=== PATIENT | female | born 1970 | race Caucasian/White ===

== ENCOUNTER 2024-05-06 07:52 | Day surgery (SDC) | payer OTHER ==
[~2024-05-06] VITALS: Ht 167.6 cm; Wt 122.2 kg
[~2024-05-06 07:52] MED LIST: SEMA1PEN3
[2024-05-06] MEDS: SODIUM CHLORIDE 0.9% 1,000 ML IV ONE (08:29)
[2024-05-06] MEDS ORDERED: OXYGEN THERAPY IH SCH (10:00)
[2024-05-06] MEDS ORDERED: PROPOFOL 1% 20 ML VIAL IVP ONE (12:00)
[2024-05-06] MEDS ORDERED: LIDOCAINE/PF 2% 5 ML VIAL IM ONE (12:00)
== END 2024-05-06 11:30 | disposition home or self-care (01) ==
LOC: SURGERY 07:52
PROVIDERS: ATTEND Specialist
DX: Z12.11 Encounter for screening for malignant neoplasm of colon (principal); K64.0 First degree hemorrhoids; E66.9 Obesity, unspecified; G47.33 Obstructive sleep apnea (adult) (pediatric); E11.9 Type 2 diabetes mellitus without complications; Z79.899 Other long term (current) drug therapy; Z68.41 Body mass index [BMI] 40.0-44.9, adult; Z82.49 Family history of ischemic heart disease and other diseases of the circulatory system
CPT/HCPCS: 45378; J2704; J3490